=== PATIENT | female | born 1945 | race African-American/Black ===

== ENCOUNTER → 2020-11-09 | Outpatient (CLI) | payer MEDICARE ==
[~2020-11-09] VITALS: Ht 157.5 cm; Wt 83.6 kg
[2020-11-09 10:21] VITALS: BP 121/77
== END | disposition home or self-care (01) ==
LOC: SRCNTR 10:03
PROVIDERS: ATTEND Internal Medicine
DX: K21.9 Gastro-esophageal reflux disease without esophagitis (principal); J32.9 Chronic sinusitis, unspecified; J45.909 Unspecified asthma, uncomplicated; J47.9 Bronchiectasis, uncomplicated; Z77.22 Contact with and (suspected) exposure to environmental tobacco smoke (acute) (chronic)
CPT/HCPCS: G0463; Z7500

== ENCOUNTER → 2023-10-13 | Outpatient (CLI) | payer MEDICARE ==
[~2023-10-13] VITALS: Ht 157.5 cm; Wt 84.0 kg
[~2023-10-13] MED LIST: ACET-2247 PO; ALBU18HF12 IH; AMLO-257 PO; BENZ-227 PO; BIFI4CAP PO; CARV12 PO; CINN500C4 PO; CYAN-42 IM; FLUT1BLS15 IH; HYDR25TA2 PO; MECL-226 PO; OMEP20 PO; PRED-554 PO; SERT-162 PO; TRAM50TA5 PO
[2023-10-13 09:55] VITALS: BP 127/78; PULSE 80; RESP 16; TEMP 97.9; O2SAT 97
== END | disposition home or self-care (01) ==
LOC: SRCNTR 09:39
PROVIDERS: ATTEND Internal Medicine
DX: J45.998 Other asthma (principal); J18.9 Pneumonia, unspecified organism; K21.9 Gastro-esophageal reflux disease without esophagitis; J32.9 Chronic sinusitis, unspecified; J47.9 Bronchiectasis, uncomplicated; Z79.899 Other long term (current) drug therapy; Z88.8 Allergy status to other drugs, medicaments and biological substances; Z87.891 Personal history of nicotine dependence
CPT/HCPCS: G0463; Z7500

== ENCOUNTER → 2024-09-23 | Outpatient (CLI) | payer MEDICARE ==
[~2024-09-23] VITALS: Ht 157.5 cm; Wt 76.0 kg
[~2024-09-23] MED LIST changes: -BIFI4CAP PO; +BIFI4CAP2 PO; +OMEP-148 PO; -OMEP20 PO
[2024-09-23 10:13] VITALS: BP 123/70; PULSE 88; RESP 20; TEMP 98.1; O2SAT 97
== END | disposition home or self-care (01) ==
LOC: SRCNTR 09:55
PROVIDERS: ATTEND Internal Medicine
DX: J32.9 Chronic sinusitis, unspecified (principal); J45.909 Unspecified asthma, uncomplicated; K21.9 Gastro-esophageal reflux disease without esophagitis; K57.30 Diverticulosis of large intestine without perforation or abscess without bleeding; Z77.22 Contact with and (suspected) exposure to environmental tobacco smoke (acute) (chronic)
CPT/HCPCS: G0463; Z7500